=== PATIENT | female | born 1975 | race Two or more races ===

== ENCOUNTER 2023-10-07 18:53 | Inpatient (IN) | payer OTHER ==
[~2023-10-07] VITALS: Ht 180.3 cm; Wt 107.0 kg
[2023-10-07 20:18] LABS: Eosinophils # (auto) 0.3 10 ^3/uL (0-0.8); Hemoglobin 10.7 g/dL (12.2-16.2); Lymphocytes # (auto) 2.6 10 ^3/uL (0.4-5.4); Nucleated Red Blood Cells % 0.1 %; Red Cell Distribution Width 14.9 % (11.8-14.3)
[2023-10-07 20:22] LABS: Basophils # (auto) 0.1 10 ^3/uL (0-0.2); Eosinophils % (auto) 2.1 % (0.0-7.0); Hematocrit 33.2 % (36.0-46.0); Lymphocytes % (auto) 21.3 % (10.0-50.0); Mean Corpuscular Hemoglobin 22.9 pg (28.0-32.0); Mean Corpuscular Hgb Conc. 32.1 g/dL (32.0-36.0); Mean Corpuscular Volume 71.5 fL (80.0-100.0); Monocytes # (auto) 0.7 10 ^3/uL (0-1.3); Monocytes % (auto) 5.7 % (0.0-12.0); Neutrophils # (auto) 8.6 10 ^3/uL (1.6-8.6); Neutrophils % (auto) 69.9 % (37.0-80.0); Red Blood Cells 4.64 10^6/uL (4.0-5.20); White Blood Cell 12.3 10^3/uL (4.4-10.8)
[2023-10-07 20:47] LABS: Albumin 3.4 g/dL (3.2-4.8); Alkaline Phosphatase 149 U/L (46-116); Anion Gap 7 (5-15); Aspartate Aminotransferase < 8 U/L (13-40); BUN/Creatinine Ratio 11.8 (10.0-20.0); Bilirubin, Total < 0.2 mg/dL (0.2-1.0); Blood Urea Nitrogen 10 mg/dL (9-23); Calcium 9.3 mg/dL (8.7-10.4); Carbon Dioxide 26 mmol/L (20-30); Chloride 98 mmol/L (98-107); Lipase 30 U/L (12-53); Sodium 131 mmol/L (136-145); Total Protein 7.3 g/dL (5.7-8.2)
[2023-10-07 20:51] LABS: Alanine Aminotransferase < 9 U/L (7-40)
[2023-10-07 20:54] LABS: Glucose 486 mg/dL (74-106)
[2023-10-07 20:54] LABS: Lactic Acid w/Reflex 2.1 mmol/L (0.4-2.0)
[2023-10-08] VITALS (7 sets, daily range): BP systolic 105–135; BP diastolic 51–77; PULSE 70–114; RESP 14–21; TEMP 97.9–98.6; O2SAT 92–98
[2023-10-08] MEDS ORDERED: VANCOMYCIN PER PHARMACY 0 MG IV SCH (00:30)
[2023-10-08 00:41] LABS: Urine Bacteria None Seen /hpf (None Seen)
[2023-10-08] MEDS: PIPERACILLIN-TAZOB 3.375GM 100 ML IV ONE (01:15)
[2023-10-08] MEDS: SODIUM CHLORIDE 0.9% 1,000 ML IV ONE (01:16)
[2023-10-08 01:34] LABS: Urine Blood Negative /uL (Negative); Urine Budding Yeast OCCASIONAL /hpf (None Seen); Urine Clarity Clear (Clear); Urine Color Light-Yellow (Yellow); Urine Protein, UAD Negative (Negative); Urine Specific Gravity 1.023 (1.001-1.035); Urine Urobilinogen Normal (Negative); Urine WBC 12 /hpf (0 - 5); Urine pH 5.5 (5.0-9.0)
[2023-10-08] MEDS: VANCOMYCIN 1GM/200ML 200 ML IV ONE (01:49)
[2023-10-08] MEDS: HYDROcodone-ACET 10/325MG TAB PO ONE (02:21)
[2023-10-08] MEDS ORDERED: ONDANSETRON HCL 4 MG/2 ML VIAL IV PRN (05:30)
[2023-10-08] MEDS ORDERED: DEXTROSE (50%) 50ML SYRG IV PRN (05:30)
[2023-10-08] MEDS ORDERED: ACETAMINOPHEN 325 MG TAB PO PRN (05:30)
[2023-10-08] MEDS ORDERED: DOCUSATE SOD 100 MG CAP PO PRN (05:30)
[2023-10-08] MEDS: SODIUM CHLORIDE 0.9% 1,000 ML IV SCH (05:44)
[2023-10-08 05:56] LABS: Basophils # (auto) 0.1 10 ^3/uL (0-0.2); Eosinophils # (auto) 0.2 10 ^3/uL (0-0.8); Monocytes # (auto) 0.8 10 ^3/uL (0-1.3); Nucleated Red Blood Cells % 0.1 %
[2023-10-08 05:58] LABS: Eosinophils % (auto) 1.9 % (0.0-7.0); Hematocrit 30.5 % (36.0-46.0); Lymphocytes % (auto) 16.8 % (10.0-50.0); Mean Corpuscular Hemoglobin 23.6 pg (28.0-32.0); Mean Corpuscular Hgb Conc. 32.8 g/dL (32.0-36.0); Monocytes % (auto) 6.3 % (0.0-12.0); Red Blood Cells 4.24 10^6/uL (4.0-5.20); White Blood Cell 12.1 10^3/uL (4.4-10.8)
[2023-10-08 06:14] LABS: Albumin 3.3 g/dL (3.2-4.8); Alkaline Phosphatase 139 U/L (46-116); Anion Gap 5 (5-15); Aspartate Aminotransferase < 8 U/L (13-40); BUN/Creatinine Ratio 11.8 (10.0-20.0); Bilirubin, Total 0.2 mg/dL (0.2-1.0); Blood Urea Nitrogen 12 mg/dL (9-23); Calcium 9.1 mg/dL (8.7-10.4); Carbon Dioxide 26 mmol/L (20-30); Chloride 101 mmol/L (98-107); Potassium 4.2 mmol/L (3.5-5.1); Sodium 132 mmol/L (136-145); Total Protein 7.3 g/dL (5.7-8.2)
[2023-10-08 06:15] LABS: Alanine Aminotransferase < 9 U/L (7-40)
[2023-10-08 06:23] LABS: Glucose 515 mg/dL (74-106)
[2023-10-08] MEDS ORDERED: MORPHINE SULFATE INJ 2 MG/ml SYRG IV PRN (07:00)
[2023-10-08] MEDS ORDERED: NITROGLYCERIN 0.4 MG SL TAB SL PRN (07:00)
[2023-10-08] MEDS: InsuLIN REG 1unit/0.01ml Soln (100units/ml) SC SCH (07:51)
[2023-10-08] MEDS: ACCU-CHEK COMFORT CURVE STRIP VI SCH (07:52)
[2023-10-08] MEDS: cefTRIAXone 1GM/50ML D5W 50 ML IV SCH (08:30)
[2023-10-08] MEDS ORDERED: FURO1TAB31 PO (09:54)
[2023-10-08] MEDS ORDERED: GABA-1308 PO (09:54)
[2023-10-08] MEDS ORDERED: METF500S3 PO (09:54)
[2023-10-08] MEDS: ENOXAPARIN SOD 40 MG/0.4 ML SYRINGE SC SCH (10:45)
[2023-10-08] MEDS: VANCOMYCIN 1GM/200ML 200 ML IV SCH (12:35)
[2023-10-08] MEDS: HYDROcodone-ACET 5/325MG TAB PO PRN (15:06)
[2023-10-08] MEDS: GABAPENTIN 100 MG CAP PO SCH (21:46)
[2023-10-09] VITALS (7 sets, daily range): BP systolic 110–137; BP diastolic 60–80; PULSE 81–108; RESP 17–20; TEMP 97.8–98.8; O2SAT 95–99
[2023-10-09 07:46] LABS: Basophils # (auto) 0.2 10 ^3/uL (0-0.2); Eosinophils # (auto) 0.3 10 ^3/uL (0-0.8); Mean Corpuscular Hemoglobin 23.1 pg (28.0-32.0); Monocytes # (auto) 0.8 10 ^3/uL (0-1.3)
[2023-10-09 07:48] LABS: Basophils % (auto) 1.2 % (0.0-2.0); Hematocrit 30.5 % (36.0-46.0); Lymphocytes # (auto) 2.6 10 ^3/uL (0.4-5.4); Lymphocytes % (auto) 21.4 % (10.0-50.0); Mean Corpuscular Hgb Conc. 32.7 g/dL (32.0-36.0); Mean Corpuscular Volume 70.5 fL (80.0-100.0); Monocytes % (auto) 6.4 % (0.0-12.0); Neutrophils # (auto) 8.4 10 ^3/uL (1.6-8.6); Nucleated Red Blood Cells % 0.1 %; Red Blood Cells 4.33 10^6/uL (4.0-5.20); Red Cell Distribution Width 14.8 % (11.8-14.3); White Blood Cell 12.3 10^3/uL (4.4-10.8)
[2023-10-09 08:05] LABS: Alkaline Phosphatase 133 U/L (46-116); Anion Gap 2 (5-15); Carbon Dioxide 30 mmol/L (20-30); Chloride 101 mmol/L (98-107); Glucose 253 mg/dL (74-106); Potassium 5.1 mmol/L (3.5-5.1); Sodium 133 mmol/L (136-145)
[2023-10-09 08:06] LABS: Bilirubin, Total 0.2 mg/dL (0.2-1.0); Total Protein 6.4 g/dL (5.7-8.2)
[2023-10-09 08:11] LABS: Alanine Aminotransferase < 9 U/L (7-40); Aspartate Aminotransferase < 8 U/L (13-40)
[2023-10-09 09:03] LABS: BUN/Creatinine Ratio 14.1 (10.0-20.0); Blood Urea Nitrogen 10 mg/dL (9-23)
[2023-10-09] MEDS: MORPHINE SULFATE INJ 2 MG/ml SYRG IV PRN (12:12)
[2023-10-09] MEDS ORDERED: INSULIN LANTUS (GLARGINE) 1 /0.01ml (100units/ml) SC SCH ×2 (16:15→22:00)
[2023-10-09] MEDS: GABAPENTIN 100 MG CAP PO SCH (16:55)
[2023-10-09] MEDS: VANCOMYCIN 1GM/200ML 200 ML IV SCH (16:55)
[2023-10-09] MEDS: INSULIN LANTUS (GLARGINE) 1 /0.01ml (100units/ml) SC ONE (20:53)
[2023-10-10] VITALS (7 sets, daily range): BP systolic 113–156; BP diastolic 56–94; PULSE 88–101; RESP 18–22; TEMP 98–98.5; O2SAT 95–100
[2023-10-10 10:50] LABS: Basophils # (auto) 0.1 10 ^3/uL (0-0.2); Eosinophils # (auto) 0.3 10 ^3/uL (0-0.8); Lymphocytes # (auto) 2.7 10 ^3/uL (0.4-5.4); Mean Corpuscular Hemoglobin 23.8 pg (28.0-32.0); Monocytes # (auto) 0.5 10 ^3/uL (0-1.3); Red Blood Cells 4.51 10^6/uL (4.0-5.20)
[2023-10-10 10:54] LABS: Basophils % (auto) 0.6 % (0.0-2.0); Eosinophils % (auto) 2.8 % (0.0-7.0); Hematocrit 32.1 % (36.0-46.0); Hemoglobin 10.7 g/dL (12.2-16.2); Lymphocytes % (auto) 26.4 % (10.0-50.0); Mean Corpuscular Hgb Conc. 33.4 g/dL (32.0-36.0); Mean Corpuscular Volume 71.2 fL (80.0-100.0); Monocytes % (auto) 4.5 % (0.0-12.0); Neutrophils # (auto) 6.6 10 ^3/uL (1.6-8.6); Neutrophils % (auto) 65.7 % (37.0-80.0); Red Cell Distribution Width 14.8 % (11.8-14.3); White Blood Cell 10.1 10^3/uL (4.4-10.8)
[2023-10-10 10:56] LABS: Chloride 100 mmol/L (98-107); Sodium 131 mmol/L (136-145)
[2023-10-10 10:57] LABS: Anion Gap 5 (5-15); Calcium 9.5 mg/dL (8.7-10.4); Carbon Dioxide 26 mmol/L (20-30)
[2023-10-10 11:02] LABS: BUN/Creatinine Ratio 14.9 (10.0-20.0); Blood Urea Nitrogen 10 mg/dL (9-23); Glucose 301 mg/dL (74-106)
[2023-10-10] MEDS: ATORVASTATIN 20 MG TAB PO SCH (21:41)
[2023-10-10] MEDS: MUPIROCIN 2% OINT 15gm or 22gm FOR MRSA NARES EACHNOSTRI SCH (22:00)
[2023-10-10] MEDS: SULFAMETHOX W/TRIMETH(800/160MG) DS TAB PO SCH (23:51)
[2023-10-11] VITALS (7 sets, daily range): BP systolic 112–136; BP diastolic 56–79; PULSE 88–101; RESP 17–20; TEMP 97.7–98.5; O2SAT 96–100
[2023-10-11 06:04] LABS: Basophils # (auto) 0.1 10 ^3/uL (0-0.2); Basophils % (auto) 1.1 % (0.0-2.0); Eosinophils # (auto) 0.3 10 ^3/uL (0-0.8); Hematocrit 29.7 % (36.0-46.0); Monocytes # (auto) 0.5 10 ^3/uL (0-1.3)
[2023-10-11 06:07] LABS: Eosinophils % (auto) 3.5 % (0.0-7.0); Hemoglobin 9.9 g/dL (12.2-16.2); Lymphocytes # (auto) 2.2 10 ^3/uL (0.4-5.4); Lymphocytes % (auto) 26.3 % (10.0-50.0); Mean Corpuscular Hemoglobin 23.7 pg (28.0-32.0); Mean Corpuscular Hgb Conc. 33.3 g/dL (32.0-36.0); Mean Corpuscular Volume 71.1 fL (80.0-100.0); Monocytes % (auto) 6.2 % (0.0-12.0); Neutrophils # (auto) 5.2 10 ^3/uL (1.6-8.6); Neutrophils % (auto) 62.9 % (37.0-80.0); Red Blood Cells 4.18 10^6/uL (4.0-5.20); White Blood Cell 8.2 10^3/uL (4.4-10.8)
[2023-10-11 06:14] LABS: Carbon Dioxide 25 mmol/L (20-30)
[2023-10-11 06:15] LABS: Chloride 104 mmol/L (98-107)
[2023-10-11 06:16] LABS: Calcium 9.1 mg/dL (8.7-10.4)
[2023-10-11 06:19] LABS: Glucose 249 mg/dL (74-106)
[2023-10-11 06:20] LABS: BUN/Creatinine Ratio 12.9 (10.0-20.0); Blood Urea Nitrogen 9 mg/dL (9-23)
[2023-10-11 06:38] LABS: Anion Gap 5 (5-15); Sodium 134 mmol/L (136-145)
[2023-10-11] MEDS: ASPirin 81 mg TAB PO SCH (11:38)
[2023-10-12] VITALS (8 sets, daily range): BP systolic 103–141; BP diastolic 46–78; PULSE 72–103; RESP 17–20; TEMP 97.2–97.6; O2SAT 96–100
[2023-10-12 06:23] LABS: Basophils # (auto) 0 10 ^3/uL (0-0.2); Eosinophils # (auto) 0.3 10 ^3/uL (0-0.8); Monocytes # (auto) 0.5 10 ^3/uL (0-1.3); Nucleated Red Blood Cells % 0.1 %
[2023-10-12 06:24] LABS: Chloride 104 mmol/L (98-107); Sodium 134 mmol/L (136-145)
[2023-10-12 06:25] LABS: Anion Gap 5 (5-15); Basophils % (auto) 0.6 % (0.0-2.0); Carbon Dioxide 25 mmol/L (20-30); Eosinophils % (auto) 3.4 % (0.0-7.0); Hematocrit 33.4 % (36.0-46.0); Lymphocytes # (auto) 2.8 10 ^3/uL (0.4-5.4); Mean Corpuscular Hemoglobin 23.6 pg (28.0-32.0); Mean Corpuscular Volume 71.7 fL (80.0-100.0); Monocytes % (auto) 6.7 % (0.0-12.0); Neutrophils # (auto) 4.1 10 ^3/uL (1.6-8.6); Neutrophils % (auto) 53.3 % (37.0-80.0); Red Blood Cells 4.67 10^6/uL (4.0-5.20); Red Cell Distribution Width 15.4 % (11.8-14.3); White Blood Cell 7.7 10^3/uL (4.4-10.8)
[2023-10-12 06:26] LABS: Calcium 9.4 mg/dL (8.7-10.4)
[2023-10-12 06:30] LABS: BUN/Creatinine Ratio 8.6 (10.0-20.0); Blood Urea Nitrogen 6 mg/dL (9-23); Glucose 172 mg/dL (74-106)
[2023-10-13] VITALS (8 sets, daily range): BP systolic 100–133; BP diastolic 56–79; PULSE 89–115; RESP 17–20; TEMP 97.5–99; O2SAT 96–98
[2023-10-13 05:37] LABS: Basophils # (auto) 0 10 ^3/uL (0-0.2); Basophils % (auto) 0.4 % (0.0-2.0); Eosinophils # (auto) 0.3 10 ^3/uL (0-0.8); Eosinophils % (auto) 4.2 % (0.0-7.0); Hematocrit 32.1 % (36.0-46.0); Hemoglobin 10.6 g/dL (12.2-16.2); Lymphocytes # (auto) 2.4 10 ^3/uL (0.4-5.4); Lymphocytes % (auto) 33.4 % (10.0-50.0); Mean Corpuscular Hemoglobin 23.2 pg (28.0-32.0); Mean Corpuscular Hgb Conc. 33.2 g/dL (32.0-36.0); Mean Corpuscular Volume 69.9 fL (80.0-100.0); Monocytes # (auto) 0.5 10 ^3/uL (0-1.3); Monocytes % (auto) 6.9 % (0.0-12.0); Neutrophils % (auto) 55.1 % (37.0-80.0); Red Blood Cells 4.59 10^6/uL (4.0-5.20); Red Cell Distribution Width 15.6 % (11.8-14.3); White Blood Cell 7.3 10^3/uL (4.4-10.8)
[2023-10-13 05:48] LABS: Anion Gap 6 (5-15); Carbon Dioxide 24 mmol/L (20-30); Chloride 102 mmol/L (98-107); Potassium 4.4 mmol/L (3.5-5.1); Sodium 132 mmol/L (136-145)
[2023-10-13 05:49] LABS: Calcium 9.4 mg/dL (8.7-10.4)
[2023-10-13 05:54] LABS: BUN/Creatinine Ratio 8.9 (10.0-20.0); Blood Urea Nitrogen 7 mg/dL (9-23); Glucose 274 mg/dL (74-106)
[2023-10-14] VITALS (8 sets, daily range): BP systolic 91–151; BP diastolic 56–81; PULSE 94–116; RESP 16–17; TEMP 97.8–98.8; O2SAT 94–100
[2023-10-15] VITALS (7 sets, daily range): BP systolic 112–143; BP diastolic 53–69; PULSE 86–101; RESP 14–19; TEMP 97.7–98.6; O2SAT 95–100
[2023-10-15 06:16] LABS: Basophils # (auto) 0 10 ^3/uL (0-0.2); Eosinophils # (auto) 0.3 10 ^3/uL (0-0.8); Lymphocytes # (auto) 2.9 10 ^3/uL (0.4-5.4); Mean Corpuscular Volume 70.7 fL (80.0-100.0); Monocytes # (auto) 0.6 10 ^3/uL (0-1.3); Red Blood Cells 4.24 10^6/uL (4.0-5.20)
[2023-10-15 06:19] LABS: Basophils % (auto) 0.6 % (0.0-2.0); Eosinophils % (auto) 3.5 % (0.0-7.0); Hemoglobin 10.1 g/dL (12.2-16.2); Lymphocytes % (auto) 38.5 % (10.0-50.0); Mean Corpuscular Hemoglobin 23.7 pg (28.0-32.0); Mean Corpuscular Hgb Conc. 33.5 g/dL (32.0-36.0); Neutrophils # (auto) 3.7 10 ^3/uL (1.6-8.6); Neutrophils % (auto) 49.4 % (37.0-80.0); Nucleated Red Blood Cells % 0.1 %; Red Cell Distribution Width 15.6 % (11.8-14.3); White Blood Cell 7.6 10^3/uL (4.4-10.8)
[2023-10-15 06:30] LABS: Anion Gap 5 (5-15); Carbon Dioxide 26 mmol/L (20-30); Chloride 105 mmol/L (98-107); Potassium 4.3 mmol/L (3.5-5.1); Sodium 136 mmol/L (136-145)
[2023-10-15 06:32] LABS: Calcium 9.3 mg/dL (8.7-10.4)
[2023-10-15 06:36] LABS: BUN/Creatinine Ratio 13.3 (10.0-20.0); Blood Urea Nitrogen 11 mg/dL (9-23); Glucose 205 mg/dL (74-106)
[2023-10-15 06:50] LABS: INR 1.03 (0.9-1.15); Prothrombin Time 10.9 sec (9.3-11.8)
[2023-10-15] MEDS ORDERED: HYDROmorphone HCL 2 MG/ML VL/or syr IV PRN (09:00)
[2023-10-15] MEDS ORDERED: PROPOFOL 10 MG/ML 20 ML IV ONE (09:10)
[2023-10-15] MEDS: INSULIN LANTUS (GLARGINE) 1 /0.01ml (100units/ml) SC SCH (17:49)
[2023-10-15 17:50] LABS: % Iron Saturation 20.2 % (15-50)
[2023-10-16] VITALS (8 sets, daily range): BP systolic 98–137; BP diastolic 47–58; PULSE 84–95; RESP 16–20; TEMP 97.4–99.1; O2SAT 94–100
[2023-10-16 07:09] LABS: Basophils # (auto) 0 10 ^3/uL (0-0.2); Basophils % (auto) 0.5 % (0.0-2.0); Eosinophils # (auto) 0.2 10 ^3/uL (0-0.8); Hemoglobin 10.3 g/dL (12.2-16.2); Monocytes # (auto) 0.4 10 ^3/uL (0-1.3); Nucleated Red Blood Cells % 0.1 %; White Blood Cell 6.4 10^3/uL (4.4-10.8)
[2023-10-16 07:11] LABS: Eosinophils % (auto) 3.6 % (0.0-7.0); Hematocrit 31.6 % (36.0-46.0); Lymphocytes # (auto) 2.9 10 ^3/uL (0.4-5.4); Mean Corpuscular Hemoglobin 23.2 pg (28.0-32.0); Mean Corpuscular Hgb Conc. 32.6 g/dL (32.0-36.0); Monocytes % (auto) 6.6 % (0.0-12.0); Neutrophils # (auto) 2.8 10 ^3/uL (1.6-8.6); Neutrophils % (auto) 44.3 % (37.0-80.0); Red Blood Cells 4.45 10^6/uL (4.0-5.20); Red Cell Distribution Width 15.6 % (11.8-14.3)
[2023-10-16 07:40] LABS: Anion Gap 10 (5-15); Carbon Dioxide 21 mmol/L (20-30); Chloride 105 mmol/L (98-107); Sodium 136 mmol/L (136-145)
[2023-10-16 07:42] LABS: Calcium 9.6 mg/dL (8.7-10.4)
[2023-10-16 07:47] LABS: BUN/Creatinine Ratio 12.9 (10.0-20.0); Blood Urea Nitrogen 9 mg/dL (9-23); Glucose 125 mg/dL (74-106)
[2023-10-16 08:24] LABS: Anisocytosis Slight; Hypochromia Slight; Platelet Estimate Increased; Tear Drop Cells FEW
[2023-10-16] MEDS ORDERED: HYDROmorphone HCL 2 MG/ML VL/or syr IV PRN ×2 (08:30)
[2023-10-16] MEDS ORDERED: MIDAZOLAM HCL 2MG/2ML 2ml VIAL (1mg/ml) ONE (08:37)
[2023-10-16] MEDS ORDERED: fentaNYL CITRATE 100 MCG/2 ML VL ONE (08:37)
[2023-10-16] MEDS ORDERED: LIDOCAINE 2% (LOCAL ANESTH.) PF 5ml SDV ONE (08:49)
[2023-10-16] MEDS ORDERED: ONDANSETRON HCL 4 MG/2 ML VIAL ONE (08:49)
[2023-10-16] MEDS ORDERED: PROPOFOL 10 MG/ML 20 ML IV ONE (08:49)
[2023-10-16] MEDS ORDERED: ROCURONIUM 10MG/ML 10ML VIAL IV ONE (08:49)
[2023-10-16] MEDS: LIDOCAINE W/ EPINEPHRINE 1% 20ML VIAL ONE (08:54)
[2023-10-16] MEDS ORDERED: VANCOMYCIN PER PHARMACY 0 MG IV SCH (09:30)
[2023-10-16] MEDS: HYDROmorphone HCL 2 MG/ML VL/or syr IV ONE ×2 (09:42)
[2023-10-16] MEDS: CLINDAMYCIN 600MG IV 0 ML IV ONE (17:01)
[2023-10-16] MEDS: CLINDAMYCIN 600MG IV 50 ML IV ONE (17:01)
[2023-10-16] MEDS: ceFAZolin 1GM/50ML 100 ML IV ONE (17:01)
[2023-10-16] MEDS: SUCCINYLCHOLINE CHLORIDE 20 MG/ML 10ML VIAL IV ONE (17:01)
[2023-10-16] MEDS: MEROPENEM 1GM IVPB 50 ML IV ONE (17:02)
[2023-10-16] MEDS: ONDANSETRON HCL 4 MG/2 ML VIAL IV ONE (17:02)
[2023-10-16] MEDS: VANCOMYCIN 1GM/200ML 200 ML IV ONE (17:02)
[2023-10-16] MEDS: MEROPENEM 1GM IVPB 50 ML IV SCH (19:01)
[2023-10-16] MEDS: VANCOMYCIN 1GM/200ML 200 ML IV SCH (20:31)
[2023-10-17 01:17] VITALS: BP 136/83; PULSE 95; RESP 18; TEMP 98.2; O2SAT 99
[2023-10-17 05:00] VITALS: BP 127/67; PULSE 96; RESP 18; TEMP 98.2; O2SAT 100
[2023-10-17 05:44] LABS: Basophils # (auto) 0 10 ^3/uL (0-0.2); Basophils % (auto) 0.5 % (0.0-2.0); Eosinophils # (auto) 0.1 10 ^3/uL (0-0.8); Eosinophils % (auto) 1.8 % (0.0-7.0); Hematocrit 31.9 % (36.0-46.0); Hemoglobin 10.8 g/dL (12.2-16.2); Lymphocytes # (auto) 2.1 10 ^3/uL (0.4-5.4); Mean Corpuscular Hemoglobin 24.1 pg (28.0-32.0); Mean Corpuscular Hgb Conc. 33.8 g/dL (32.0-36.0); Mean Corpuscular Volume 71.4 fL (80.0-100.0); Monocytes # (auto) 0.4 10 ^3/uL (0-1.3); Monocytes % (auto) 5.3 % (0.0-12.0); Neutrophils # (auto) 5.1 10 ^3/uL (1.6-8.6); Neutrophils % (auto) 65.4 % (37.0-80.0); Red Blood Cells 4.47 10^6/uL (4.0-5.20); Red Cell Distribution Width 15.8 % (11.8-14.3); White Blood Cell 7.8 10^3/uL (4.4-10.8)
[2023-10-17 05:49] LABS: Chloride 103 mmol/L (98-107); Potassium 4.5 mmol/L (3.5-5.1); Sodium 134 mmol/L (136-145)
[2023-10-17 05:50] LABS: Anion Gap 6 (5-15); Calcium 9.5 mg/dL (8.7-10.4); Carbon Dioxide 25 mmol/L (20-30)
[2023-10-17 05:55] LABS: BUN/Creatinine Ratio 10.8 (10.0-20.0); Blood Urea Nitrogen 10 mg/dL (9-23); Glucose 278 mg/dL (74-106)
[2023-10-17 09:00] VITALS: BP 124/64; PULSE 102; RESP 17; TEMP 98.5; O2SAT 98
[2023-10-17 13:10] VITALS: BP 131/87; PULSE 108; RESP 17; TEMP 98.4; O2SAT 98
[2023-10-17 16:38] VITALS: BP 131/87; PULSE 102; RESP 18; TEMP 98.3; O2SAT 98
[2023-10-17] MEDS: traZODone HCL 50 MG TAB PO SCH (18:00)
[2023-10-17] MEDS: SULFAMETHOX W/TRIMETH(800/160MG) DS TAB PO SCH (21:22)
[2023-10-18 09:11] VITALS: BP 121/74; PULSE 104; RESP 17; TEMP 98.5; O2SAT 96
[2023-10-18 13:06] VITALS: BP 125/72; PULSE 99; RESP 17; TEMP 98.4; O2SAT 98
[2023-10-18 16:53] VITALS: BP 123/71; PULSE 103; RESP 17; TEMP 98.3; O2SAT 94
[2023-10-18] MEDS: OLANZapine 5 MG TAB PO SCH (22:00)
[2023-10-19 08:00] VITALS: PULSE 88; RESP 18; O2SAT 98
== END 2023-10-19 15:43 | disposition home or self-care (01) | DRG 720 ==
LOC: ER 18:53 → EDBD 18:53 → OVERFLOW 10-08 07:02 → WEST WING 10-08 09:05 → EAST 10-10 19:40
PROVIDERS: ADMIT Internal Medicine Geriatric Medicine; ATTEND Internal Medicine Geriatric Medicine
PROC: 0JBP0ZZ Excision of Left Lower Leg Subcutaneous Tissue and Fascia, Open Approach (ICD-10-PCS; principal; 2023-10-16 08:28)
DX: A41.9 Sepsis, unspecified organism (principal); N17.0 Acute kidney failure with tubular necrosis; E87.20 Acidosis, unspecified; E87.1 Hypo-osmolality and hyponatremia; E11.51 Type 2 diabetes mellitus with diabetic peripheral angiopathy without gangrene; D50.9 Iron deficiency anemia, unspecified; L02.416 Cutaneous abscess of left lower limb; L03.115 Cellulitis of right lower limb; L97.229 Non-pressure chronic ulcer of left calf with unspecified severity; L03.317 Cellulitis of buttock; E11.622 Type 2 diabetes mellitus with other skin ulcer; L03.116 Cellulitis of left lower limb; E86.0 Dehydration; D75.839 Thrombocytosis, unspecified; E11.65 Type 2 diabetes mellitus with hyperglycemia; S31.829A Unspecified open wound of left buttock, initial encounter; X58.XXXA Exposure to other specified factors, initial encounter; F20.9 Schizophrenia, unspecified; Y93.9 Activity, unspecified; Y92.89 Other specified places as the place of occurrence of the external cause; Y99.8 Other external cause status; Z79.4 Long term (current) use of insulin
CPT/HCPCS: 36415; 73700; 80048; 80053; 80202; 81001; 81025; 82962; 83036; 83540; 83550; 83605; 83690; 83880; 84484; 84702; 85025; 85610; 87040; 87070; 87075; 87077; 87081; 87186; 87205; 93970; 96365; 96366; 96368; 97110; 97163; G0378; J0330; J1815; J2001; J2185; J2250; J2405; J2543; J2704; J3490